=== PATIENT | female | born 1980 | race Caucasian/White ===

== ENCOUNTER 2018-09-28 13:50 | Emergency (ER) | payer MEDICAID, SELFPAY ==
[2018-09-28 13:52] VITALS: BP 142/92; PULSE 101; RESP 16; TEMP 36.6; O2SAT 97; BMI 39.9
--- NOTE | 2018-09-28 14:22 | ED.DCSUM_ITS ---
History of Present Illness Chief Complaint: Back Informant: Patient Onset: Days Context: Sudden Onset - Worse Timing: Continuous Quality: Pain Location: Posterior neck and upper extremity Current Severity: Moderate Maximum Severity: Severe Worsened by: Movement and palpation Relieved by: Steroid injection Associated Symptoms: Paresthesia and anesthesia Narrative: Patient is a 38-year-old woman who has history of rheumatoid arthritis and fibr omyalgia. She missed her appointment with aviation engineer August 30 because of issues with her son. She denies fever, chills or night sweats. She denies URI symptoms. She denies cardiac or respiratory symptoms. She denies GI symptoms. She denies weakness in her extremities. Prior similar symptoms: Yes Recent Illness/Hospitalization: No - Past Medical History (1) History of rheumatoid arthritis Status: Acute (2) History of fibromyalgia Status: Acute Past Medical History - Allergies and Home Meds Allergies/Adverse Reactions: Allergies acetaminophen [From Vicodin] Allergy (Verified 09/28/18 14:01) Anaphylaxis diphenhydramine [From Benadryl] Allergy (Verified 09/28/18 14:01) Other hydrocodone [From Vicodin] Allergy (Verified 09/28/18 14:01) Anaphylaxis ketamine Allergy (Verified 09/28/18 14:01) Other ketorolac [From Toradol] Allergy (Verified 09/28/18 14:01) Anaphylaxis sumatriptan [From Imitrex] Allergy (Verified 09/28/18 14:01) Anaphylaxis Primary Care Physician: Mahesh Garcia,Out of [Primary Care Provider] - Prior records reviewed: No - None available Surgical History: noncontributory Lives: With Family Smoking Status: Heavy Smoker (>10/day) Drugs: None Review of Systems General: Denies: Chills, Fever, Malaise, Subjective, Sweats, Weight loss, - ENT: Denies: Bilateral ear pain, Rhinorrhea, Sore throat Cardiovascular: Denies: Chest pain, Palpitations Respiratory: Denies: Dyspnea, Cough, Dyspnea on exertion Gastrointestinal: Denies: Abdominal pain, Nausea, Vomiting, Diarrhea, Melena, Hematochezia Genitourinary: Denies: Dysuria, Hematuria, Frequency Musculoskeletal: Reports: Myalgias, Arthralgias, Neck pain, Extremity Pain. Denies: Back pain, Swelling, -, - Skin: Denies: Rash, Wounds Neurological: Reports: Parasthesia. Denies: Headache, Weakness Hematologic: Denies: Easy bruising, Easy bleeding Physical Exam Vital Signs/Narrative: Vital Signs Temp Pulse Resp BP Pulse Ox 09/28/18 13:52 97.9 F 101 H 16 142/92 H 97 Inital Vital Signs reviewed: Yes General: Well nourished, Well developed, Obese, No Acute Distress Head: Normocephalic, Atraumatic Eyes: Perrl, EOMI ENT: Moist mucous membranes, No rhinorrhea Neck: Supple, Nontender Cardiovascular: Regular rate, Regular rhythm, No murmurs Respiratory: No distress, CTA bilaterally, Chest nontender Abdomen: Soft, Nontender, Nondistended, Normal bowel sounds Back: Nontender, Normal Inspection Extremities: Nontender, No edema Skin: Normal color, No rash, No Trauma. Negative for: Cyanosis, Diaphoresis, Jaundice Neurological: Alert, Oriented x3, Cranial nerves II-XII grossly intact, Normal Strength, Normal Sensation, Normal DTR - [place] 2+ upper and lower extremity and symmetric. There is no clonus or Babinski sign. Psychological: Depressed - Depressed affect Diagnostic/Tx/Re-eval - Medical Decision Making With history of rheumatoid arthritis and fibromyalgia and based on her allergies will treat with Kenalog injection. She states she has not had her medicine for some time. Based on her allergies not comfortable administering parenteral opiate analgesics. Since there is no evidence of septic joint, cellulitis or any other abnormality will administer Kenalog and discharged home ED Disposition - Plan for ED Patient: Disposition: Home or Assisted Living Diagnosis: Rheumatoid arthritis flare, Fibromyalgia affecting upper arm Instructions: Fibromyalgia, Rheumatoid Arthritis Referrals: [facility] Doctor,Out of [Primary Care Provider] - Keep [place] appointment
[2018-09-28] MEDS: Triamcinolone Acetonide 40 MG/ML Vial 80 MG IM (14:43)
[2018-09-28] MEDS: Ibuprofen 200 MG Tablet 800 MG PO (14:51)
--- NOTE | 2018-09-28 15:20 | ED.RN ---
PT REQUESTING PAIN MEDICATIONS. REPORTS USUALLY GETS MORPHINE SHOT WITH THE STEROID TO HELP UNTIL STEROID KICKS IN. STATES I DONT WANT A RX. THE STEROID USUALLY IS WHAT REALLY TAKES CARE OF IT. DISCUSSED WITH . DISCUSSED WITH THIS NURSE REGARDING HER ANAPHALAXIS TO MULTIPLE PAIN MEDICATIONS. AND HE DOES NOT FEEL COMFORTABLE GIVING HER OPIOIDS. PT REQUESTING HER TRAMODAL THAT SHE STATES SHE TAKES 100MG BID. PT HAS BEEN WITHOUT HER MEDS FOR A MONTH OR MORE PER AND SHE NEEDS TO FOLLOW UP WITHER HER SPECIALISTS AND PCP. PT UPSET WITH DR. STATES TELL THAT DR HE IS AN ASSHOLE. HES AN IDIOT. TELL HIM IT IS DRS LIKE HIM THAT DRIVE PEOPLE TO GO TO THE STREETS FOR THEIR MEDS AND END UP DYING FROM IT BECAUSE YOU DONT KNOW WHAT IT IS MIXED WITH. PT ADMITTS THAT SHE OS A RECOVERING DRUG ADDICT AND THAT SHE HAS BEEN CLEAN FOR 5 YEARS. EVEN WITH GETTING THE MORPHINE WHEN NEEDED WITH THE STEROIDS. I CANT EVEN FUNCTION TO TAKE CARE OF MY KIDS. EMOTIONAL SUPPORT OFFERED. AFTER PT MORE CALM STATES AT LEAST I AM GETTING THE STEROID. I GUESS THAT IS WHAT I CAME FOR BECAUSE THAT IS WHAT HELPS. PT THEN REQUESTING CAN I AT LEAST GET MOTRIN 800MG UNTIL THE STEROID KICKS IN? DISCUSSED WITH ORDERED RECEIVED AND MED GIVEN. PT DISCHARGED. NO FURTHER NEEDS VOICED.
== END 2018-09-28 14:55 | disposition home or self-care (01) ==
LOC: ED 14:34
PROVIDERS: Emergency Provider Emergency Medicine
DX: M06.9 Rheumatoid arthritis, unspecified (principal); M79.7 Fibromyalgia; E66.9 Obesity, unspecified; F17.200 Nicotine dependence, unspecified, uncomplicated; Z88.8 Allergy status to other drugs, medicaments and biological substances; Z88.5 Allergy status to narcotic agent
CPT/HCPCS: 96372; 99283

== ENCOUNTER 2018-10-21 21:36 | Emergency (ER) | payer MEDICAID, SELFPAY ==
[2018-10-21 21:38] VITALS: BP 170/96; PULSE 90; RESP 18; TEMP 36.7; O2SAT 97; BMI 41.6
--- NOTE | 2018-10-21 22:07 | ED.VISSUMM ---
- ER Visit Summary Date of Service: 10/21/18 Chief Complaint: Atraumatic right shoulder pain History of Present Illness: The patient is a 38 F 8-year-old female history of rheumatoid arthritis and fibromyalgia. Normally she lives in [place] but she is in a custody alaniz with her ex-. Children were taken away by children services from him. She is currently living up here with her mother for the next several months. She states she has a history of receiving oxycodone, Valium and Lyrica from her office manager executive assistant in [facility]. He is out of her prescriptions. States that for the last 2 days she has had right posterior shoulder spasm. She is had this multiple times before. Physical Examination: Female no acute distress vital signs stable afebrile. HEENT exam unremarkable. Lungs clear to auscultation. Heart regular rhythm no murmur. Abdomen soft nontender. Extremities moves all 4. Her right posterior shoulder trapezius is tender consistent with muscle spasm. No bony deformity. Neurologically she is awake and alert with no focal motor deficits. Test Results: None Emergency Department Course and Treatment: Because multiple treatment options with the patient. She has multiple allergies. She will be given 1 OxyIR here for pain 1 p.o. Valium. She states her sister will drive her home. Otherwise anti-inflammatories. Hot shower warm bath and massage. Treatment Plan: Valium p.o. 3 times daily as needed. Hot shower warm bath. Massage. Disposition: Discharge Impression: Acute right shoulder muscle spasm Drug-seeking behavior This note was generated with [employer] dictation software. It may contain incorrect words, spelling, and punctuation that were not noted in review of the chart prior to signing ED Disposition - Plan for ED Patient: Referrals: Care Physician,No Primary [Primary Care Provider] -
--- NOTE | 2018-10-21 22:09 | DCINST.ED_ITS ---
ED Disposition - Plan for ED Patient: Disposition: Home or Assisted Living Instructions: ED Chronic Pain, Muscle Spasm Prescriptions: Diazepam [Valium] 5 mg PO 4X/DAY PRN PRN 5 Days #10 tab PRN Reason: Muscle Spasm Prescription Printed Referrals: Care Physician,No Primary [Primary Care Provider] - As Needed Additional Instructions: Hot shower, warm bath, Motrin and massage. Valium as needed for muscle relaxant. Follow-up with your table tender sludge.
[2018-10-21] MEDS: diazePAM 5 MG Tablet PO (22:52)
[2018-10-21] MEDS: oxyCODONE 5 MG Tablet 10 MG PO (22:52)
[2018-10-21 22:56] VITALS: BP 156/71; PULSE 85; RESP 16; O2SAT 99
--- NOTE | 2018-10-21 22:57 | ED.RN ---
WAITING FOR SISTER TO ARRIVE AT BEDSIDE FOR [facility] HOME BEFORE ADMINISTERING ORDERED MEDICATIONS.
== END 2018-10-21 22:57 | disposition home or self-care (01) ==
LOC: ED 22:20
PROVIDERS: Emergency Provider Emergency Medicine
DX: M62.838 Other muscle spasm (principal); Z76.5 Malingerer [conscious simulation]; M06.9 Rheumatoid arthritis, unspecified; M79.7 Fibromyalgia; Z72.0 Tobacco use; Z79.899 Other long term (current) drug therapy
CPT/HCPCS: 99283